=== PATIENT | female | born 1950 | race African-American/Black ===

== ENCOUNTER 2017-08-17 20:27 | Inpatient (IN) ==
--- NOTE | 2017-08-17 21:02 | Emergency Department Note ---
Disposition Clinical Impression: Small bowel obstruction Disposition: Admitted As Inpatient Condition: Good Referrals: Alfredo Santiago MD [Primary Care Provider] - Forms: ED Satisfaction Letter, Work/School Release Time of Disposition: 23:00 General Adult HPI - General Chief complaint: ED Abdominal Pain Stated complaint: abdominal pain Time Seen by Provider: 08/17/17 20:41 Source: patient Limitations: no limitations Nursing Notes Reviewed: Yes Vital Signs Reviewed: Yes - History of Present Illness HPI Narrative: Mrs. Castanon is a very pleasant 67-year-old female who presents to the [facility] emergency department with a chief complaint of abdominal pain. She reports this abdominal pain started at approximately 5 PM today after eating soup. Patient had this abdominal pain previously but not to this extent. Patient reports his pain is sharp and localized to the epigastric region. She has a history of colon cancer back in 2006 that was treated with partial resection and chemotherapy. She follows the cancer center here [place] annually and is in remission. Subsequently, she experienced 2 small bowel obstructions of which the latter required surgical intervention at [facility] that was roughly 2 years ago after she had her colon resection. She has had no abdominal complaints since then. Her last bowel movement was this morning and was unremarkable. Patient has associated nausea without any emesis. She denies any dysuria, hematuria, hematochezia, melena, chest pain, shortness breath, palpitations or fever. No other complaints at this time. Pain Scale: 7 - Related Data Home Medications Medication Instructions Recorded Confirmed Calcium Carbonate/Vitamin D3 1 each PO BID 01/04/15 12/30/16 [Calcium 500 + D Tablet] Cyanocobalamin (Vitamin B-12) 1,000 mcg PO DAILY 01/04/15 12/30/16 [Vitamin B-12] Multivitamin [Multi-Day Vitamins] 1 each PO DAILY 01/04/15 12/30/16 Raloxifene [Evista] 60 mg PO DAILY 01/04/15 12/30/16 Zinc Gluconate [Zinc] 10 mg PO DAILY 01/04/15 12/30/16 Folic Acid 1 mg PO DAILY 01/01/16 12/30/16 [place]-3/Dha/Epa/Fish Oil [Fish Oil 1 each PO DAILY 12/30/16 12/30/16 500 mg Softgel] Allergies Allergy/AdvReac Type Severity Reaction Status Date / Time No Known Allergies Allergy Verified 12/30/16 08:28 Review of Systems: As Per HPI Past Medical History - Past Medical History Medical history: Reports: cancer Surgical history: Reports: cancer surgery Psychiatric history: Reports: no psych history - Social History Smoking Status: Never smoker Alcohol use: Reports: none Drug use: Reports: none Physical Exam CONSTITUTIONAL: Alert and oriented X3 but appears uncomfortable and is grabbing her stomach HEAD: Normocephalic; atraumatic. Oropharynx: pink/moist RESP: NRD without use of accessory musculature, CTA b/l with no wheezes/rales/ rhonchi CARD: Regular rhythm, without murmurs, rubs, or gallop ABD: grossly normal, soft, profoundly tender to palpation to the epigastric region with guarding present, no rebound tenderness or distention SKIN: normal appearance, no pallor/diaphoresis,mottling,jaundice,cyanosis EXT: DP/Rad pulses 2+ and symmetrical; no lateralizing edema; no other lesions seen PSYCH: appropriate mood/affect - General Limitations: no limitations General appearance: alert, in no apparent distress Course Course Narrative: Patient was seen and examined at bedside with present. Vital signs reviewed and were unremarkable. Physical examination demonstrates a patient who is uncomfortable and grabbing her abdomen. Abdominal exam shows profound tenderness to palpation to her epigastric region with guarding present no rebound tenderness or distention. Examination otherwise was benign. We will begin workup with urinalysis, BMP, CBC, hepatic panel, lipase. IV access obtained. IV Zofran and morphine will be given. Given her history of colon cancer, partial colon resection and multiple SBO's along with her presentation will further evaluate with a CT of the abdomen and pelvis with IV contrast. This disposition was discussed with patient and and all her questions were addressed. Results pending. 2134: Patient is still uncomfortable and will add on 25 F[address]. Start[address] IV fluids. CT pending. 2258: CT of abdomen demonstrates a small bowel obstruction with a transition point in the mid abdomen. Patient is nothing by mouth. General surgery, Dr. Lee was called and the case was discussed with him. No further recommendations at this time. Surgery will be primary team to admit to 3A. Patient understands and agrees to plan. Vital Signs Temperature 98.3 F 08/17/17 20:28 Pulse Rate 81 08/17/17 20:28 Respiratory Rate 18 08/17/17 20:28 Blood Pressure 115/65 08/17/17 20:28 O2 Sat by Pulse Oximetry 99 08/17/17 20:28 Temperature 98.3 F 08/17/17 20:28 Pulse Rate 78 08/17/17 22:39 Respiratory Rate 20 08/17/17 22:39 Blood Pressure 125/68 08/17/17 22:39 O2 Sat by Pulse Oximetry 100 08/17/17 22:39 Oxygen Delivery Oxygen Delivery Room Air Medical Decision Making - Medical Records Medical records reviewed: Yes I reviewed the patient's medical records. - Lab Data Lab results reviewed: Yes I reviewed the patient's lab results. Result diagrams: 08/17/17 20:56 08/17/17 20:56 Lab Results 08/17/17 08/17/17 08/17/17 Range/Units 20:46 20:56 20:56 WBC 7.7 (4.3-11.1) K/mcL RBC 5.04 H (3.82-4.97) M/mcL Hgb 13.7 (11.5-15.4) g/dL Hct 42.0 (35.3-44.9) % MCV 83.3 (83.0-100.0) fL MCH 27.2 L (28.0-33.3) pg MCHC 32.6 (31.6-35.5) g/dL RDW 14.0 (11.5-14.5) % Plt Count 290 (140-400) K/mcL MPV 9.0 L (9.4-12.4) fL Immature Gran % 0.4 (0-4) % Seg Neutrophils % 84.1 % Lymphocytes % 10.0 % Monocytes % 4.9 % Eosinophils % 0.3 % Basophils % 0.3 % Neutrophils # 6.5 (1.6-8.9) K/mcL Lymphocytes # 0.8 (0.6-4.6) K/mcL Monocytes # 0.4 (0.0-1.3) K/mcL Eosinophils # 0.0 (0.0-0.6) K/mcL Basophils # 0.0 (0.0-0.2) K/mcL Platelet Estimate Normal (Normal) Sodium 139 (136-145) mEq/L Potassium 3.8 (3.5-5.1) mEq/L Chloride 104 (98-107) mEq/L Carbon Dioxide 25 (23-29) mEq/L BUN 15 (8-23) mg/dL Creatinine 0.88 (0.60-1.20) mg/dL Est GFR ( Amer) > 60 (> 60) Est GFR (Non-Af Amer) > 60 (> 60) BUN/Creatinine Ratio 17 (6-26) Glucose 130 H (70-105) mg/dL Calculated Osmolality 291 (280-300) Lactic Acid (0.5-2.2) mmol/L Calcium 10.1 (8.6-10.3) mg/dL Total Bilirubin 0.8 (0.3-1.0) mg/dL Direct Bilirubin 0.1 (0.0-0.2) mg/dL Indirect Bilirubin 0.7 (0.0-1.2) mg/dL AST 16 (13-39) Units/L ALT 14 (7-52) Units/L Alkaline Phosphatase 66 (34-104) Units/L Serum Total Protein 8.0 (6.4-8.9) g/dL Albumin 4.9 (3.5-5.7) g/dL Globulin 3.1 (2.4-3.5) g/dL Albumin/Globulin Ratio 1.6 (1.1-2.2) Lipase 26 (11-82) Units/L Urine Color Yellow (Yellow) Urine Clarity Clear (Clear) Urine pH 8.5 H (5.0-8.0) pH Units Ur Specific [place] 1.022 (1.010-1.025) Urine Protein 30 H (Neg-Trace) mg/dL Urine Glucose (UA) Normal (Normal) mg/dL Urine Ketones 15 H (Negative) mg/dL Urine Blood Negative (Negative) Urine Nitrite Negative (Negative) Urine Bilirubin Negative (Negative) Urine Urobilinogen Normal (Normal) mg/dL Ur Leukocyte Esterase Negative (Negative) Urine Microscopic RBC 3-5 H (0-3) per hpf Urine Microscopic WBC 0-3 (0-3) per hpf Ur Squamous Epith Cells Moderate H (None-Few) per lpf Urine Bacteria None Seen (None-Few) per hpf Hyaline Casts None Seen (None-Few) per lpf Ur Culture Indicated? NO (NO) 08/17/17 Range/Units 20:56 WBC (4.3-11.1) K/mcL RBC (3.82-4.97) M/mcL Hgb (11.5-15.4) g/dL Hct (35.3-44.9) % MCV (83.0-100.0) fL MCH (28.0-33.3) pg MCHC (31.6-35.5) g/dL RDW (11.5-14.5) % Plt Count (140-400) K/mcL MPV (9.4-12.4) fL Immature Gran % (0-4) % Seg Neutrophils % % Lymphocytes % % Monocytes % % Eosinophils % % Basophils % % Neutrophils # (1.6-8.9) K/mcL Lymphocytes # (0.6-4.6) K/mcL Monocytes # (0.0-1.3) K/mcL Eosinophils # (0.0-0.6) K/mcL Basophils # (0.0-0.2) K/mcL Platelet Estimate (Normal) Sodium (136-145) mEq/L Potassium (3.5-5.1) mEq/L Chloride (98-107) mEq/L Carbon Dioxide (23-29) mEq/L BUN (8-23) mg/dL Creatinine (0.60-1.20) mg/dL Est GFR ( Amer) (> 60) Est GFR (Non-Af Amer) (> 60) BUN/Creatinine Ratio (6-26) Glucose (70-105) mg/dL Calculated Osmolality (280-300) Lactic Acid 2.7 H (0.5-2.2) mmol/L Calcium (8.6-10.3) mg/dL Total Bilirubin (0.3-1.0) mg/dL Direct Bilirubin (0.0-0.2) mg/dL Indirect Bilirubin (0.0-1.2) mg/dL AST (13-39) Units/L ALT (7-52) Units/L Alkaline Phosphatase (34-104) Units/L Serum Total Protein (6.4-8.9) g/dL Albumin (3.5-5.7) g/dL Globulin (2.4-3.5) g/dL Albumin/Globulin Ratio (1.1-2.2) Lipase (11-82) Units/L Urine Color (Yellow) Urine Clarity (Clear) Urine pH (5.0-8.0) pH Units Ur Specific [place] (1.010-1.025) Urine Protein (Neg-Trace) mg/dL Urine Glucose (UA) (Normal) mg/dL Urine Ketones (Negative) mg/dL Urine Blood (Negative) Urine Nitrite (Negative) Urine Bilirubin (Negative) Urine Urobilinogen (Normal) mg/dL Ur Leukocyte Esterase (Negative) Urine Microscopic RBC (0-3) per hpf Urine Microscopic WBC (0-3) per hpf Ur Squamous Epith Cells (None-Few) per lpf Urine Bacteria (None-Few) per hpf Hyaline Casts (None-Few) per lpf Ur Culture Indicated? (NO) - Radiology Data Radiology results reviewed: Yes I reviewed the patient's radiology results. Abdomen/Pelvis CT 08/17/17 21:10 IMPRESSION: Findings compatible small bowel obstruction with a zone of transition in the mid abdomen. Consider small bowel follow-through for more dynamic evaluation. Re- demonstration of multiple hepatic hemangiomas which appeared decreased in size when compared to the previous exam. D/ / Jayro Gotti MD / Jayro Gotti MD Interpreting Provider: Jayro Gotti MD
[2017-08-17] MEDS ORDERED: *HR* Morphine 2 MG/ML SYRINGE IVP ONE (21:10)
[2017-08-17] MEDS ORDERED: Ondansetron 4 MG/2 ML VIAL IVP ONE (21:10)
[2017-08-17 21:13] LABS: Bilirubin,Urine Negative (Negative); Blood,Urine Negative (Negative); Clarity,Urine Clear (Clear); Color,Urine Yellow (Yellow); Glucose,Urine (UA) Normal (Normal); Ketones,Urine 15 mg/dL (Negative); Leukocyte Esterase,Urine Negative (Negative); Nitrite,Urine Negative (Negative); PH,Urine 8.5 pH Units (5.0-8.0); Protein,Urine 30 mg/dL (Neg-Trace); Specific Gravity,Urine 1.022 (1.010-1.025); Urobilinogen,Urine Normal (Normal)
[2017-08-17 21:15] LABS: Basophils % 0.3 %; Eosinophils % 0.3 %; Hemoglobin 13.7 g/dL (11.5-15.4); Immature Granulocytes % 0.4 % (0-4); Mean Corpuscular HGB Conc 32.6 g/dL (31.6-35.5); Mean Corpuscular Hemoglobin 27.2 pg (28.0-33.3); Mean Corpuscular Volume 83.3 fL (83.0-100.0); Monocytes % 4.9 %; Platelet Count 290 K/mcL (140-400); Red Blood Count 5.04 M/mcL (3.82-4.97); Segmented Neutrophils % 84.1 %
[2017-08-17 21:16] LABS: Bacteria,Urine None Seen per hpf (None-Few); Hyaline Casts,Urine None Seen per lpf (None-Few); Squamous Epithelial Cell,Urine Moderate per lpf (None-Few); WBC,Urine 0-3 per hpf (0-3)
[2017-08-17 21:16] LABS: Lymphocytes # 0.8 K/mcL (0.6-4.6); Monocytes # 0.4 K/mcL (0.0-1.3); Neutrophils # 6.5 K/mcL (1.6-8.9)
[2017-08-17 21:29] LABS: Alanine Aminotransferase 14 Units/L (7-52); Albumin 4.9 g/dL (3.5-5.7); Albumin/Globulin Ratio 1.6 (1.1-2.2); Alkaline Phosphatase 66 Units/L (34-104); Aspartate Amino Transferase 16 Units/L (13-39); BUN/Creatinine Ratio 17 (6-26); Bilirubin,Direct 0.1 mg/dL (0.0-0.2); Bilirubin,Indirect 0.7 mg/dL (0.0-1.2); Bilirubin,Total 0.8 mg/dL (0.3-1.0); Blood Urea Nitrogen 15 mg/dL (8-23); Calcium 10.1 mg/dL (8.6-10.3); Carbon Dioxide 25 mEq/L (23-29); Chloride 104 mEq/L (98-107); Globulin 3.1 g/dL (2.4-3.5); Glucose 130 mg/dL (70-105); Lipase 26 Units/L (11-82); Osmolality,Calculated 291 (280-300); Potassium 3.8 mEq/L (3.5-5.1); Sodium 139 mEq/L (136-145); eGFR For African Americans > 60 (> 60); eGFR For Non-African Americans > 60 (> 60)
[2017-08-17] MEDS ORDERED: 0.9 % Sodium Chloride 1,000 ML IVC ONE (21:31)
[2017-08-17] MEDS ORDERED: *HR* FentaNYL (PF) 100 MCG/2 ML VIAL IVP ONE ×2 (21:33→21:58)
[2017-08-17 21:36] LABS: Platelet Estimate Normal (Normal)
--- NOTE | 2017-08-17 23:07 | Emergency Department Note ---
Disposition Clinical Impression: Small bowel obstruction Disposition: Admitted As Inpatient Condition: Good General Adult HPI - General Chief complaint: ED Abdominal Pain Stated complaint: abdominal pain Time Seen by Provider: 08/17/17 20:41 Source: patient Limitations: no limitations - History of Present Illness Pain Scale: 7 - Related Data Home Medications Medication Instructions Recorded Confirmed Calcium Carbonate/Vitamin D3 1 each PO DAILY 01/04/15 08/18/17 [Calcium 500 + D Tablet] Cyanocobalamin (Vitamin B-12) 1,000 mcg PO DAILY 01/04/15 08/18/17 [Vitamin B-12] Multivitamin [Multi-Day Vitamins] 1 each PO DAILY 01/04/15 08/18/17 Zinc Gluconate [Zinc] 10 mg PO DAILY 01/04/15 08/18/17 Folic Acid 1 mg PO DAILY 01/01/16 08/18/17 [place]-3/Dha/Epa/Fish Oil [Fish Oil 1 each PO DAILY 12/30/16 08/18/17 500 mg Softgel] Alendronate Sodium [Alendronate 70 mg PO QWEEK 08/18/17 08/18/17 Sodium] Magnesium Oxide [Magnesium] 400 mg PO DAILY 08/18/17 08/18/17 Allergies Allergy/AdvReac Type Severity Reaction Status Date / Time No Known Allergies Allergy Verified 12/30/16 08:28 Past Medical History - Past Medical History Medical history: Reports: cancer Surgical history: Reports: cancer surgery Psychiatric history: Reports: no psych history - Social History Smoking Status: Never smoker Alcohol use: Reports: none Drug use: Reports: none Physical Exam - General Limitations: no limitations General appearance: alert, in no apparent distress Course Vital Signs Temperature 98.3 F 08/17/17 20:28 Pulse Rate 81 08/17/17 20:28 Respiratory Rate 18 08/17/17 20:28 Blood Pressure 115/65 08/17/17 20:28 O2 Sat by Pulse Oximetry 99 08/17/17 20:28 Temperature 98.7 F 08/19/17 11:01 Pulse Rate 66 08/19/17 11:01 Respiratory Rate 14 08/19/17 11:01 Blood Pressure 101/62 08/19/17 11:01 O2 Sat by Pulse Oximetry 99 08/19/17 11:01 Oxygen Delivery Oxygen Delivery Room Air Medical Decision Making - Lab Data Result diagrams: 08/19/17 05:40 08/19/17 05:40 Lab Results 08/17/17 08/17/17 08/17/17 Range/Units 20:46 20:56 20:56 WBC 7.7 (4.3-11.1) K/mcL RBC 5.04 H (3.82-4.97) M/mcL Hgb 13.7 (11.5-15.4) g/dL Hct 42.0 (35.3-44.9) % MCV 83.3 (83.0-100.0) fL MCH 27.2 L (28.0-33.3) pg MCHC 32.6 (31.6-35.5) g/dL RDW 14.0 (11.5-14.5) % Plt Count 290 (140-400) K/mcL MPV 9.0 L (9.4-12.4) fL Immature Gran % 0.4 (0-4) % Seg Neutrophils % 84.1 % Lymphocytes % 10.0 % Monocytes % 4.9 % Eosinophils % 0.3 % Basophils % 0.3 % Neutrophils # 6.5 (1.6-8.9) K/mcL Lymphocytes # 0.8 (0.6-4.6) K/mcL Monocytes # 0.4 (0.0-1.3) K/mcL Eosinophils # 0.0 (0.0-0.6) K/mcL Basophils # 0.0 (0.0-0.2) K/mcL Platelet Estimate Normal (Normal) Sodium 139 (136-145) mEq/L Potassium 3.8 (3.5-5.1) mEq/L Chloride 104 (98-107) mEq/L Carbon Dioxide 25 (23-29) mEq/L BUN 15 (8-23) mg/dL Creatinine 0.88 (0.60-1.20) mg/dL Est GFR ( Amer) > 60 (> 60) Est GFR (Non-Af Amer) > 60 (> 60) BUN/Creatinine Ratio 17 (6-26) Glucose 130 H (70-105) mg/dL Calculated Osmolality 291 (280-300) Lactic Acid (0.5-2.2) mmol/L Calcium 10.1 (8.6-10.3) mg/dL Total Bilirubin 0.8 (0.3-1.0) mg/dL Direct Bilirubin 0.1 (0.0-0.2) mg/dL Indirect Bilirubin 0.7 (0.0-1.2) mg/dL AST 16 (13-39) Units/L ALT 14 (7-52) Units/L Alkaline Phosphatase 66 (34-104) Units/L Serum Total Protein 8.0 (6.4-8.9) g/dL Albumin 4.9 (3.5-5.7) g/dL Globulin 3.1 (2.4-3.5) g/dL Albumin/Globulin Ratio 1.6 (1.1-2.2) Lipase 26 (11-82) Units/L Urine Color Yellow (Yellow) Urine Clarity Clear (Clear) Urine pH 8.5 H (5.0-8.0) pH Units Ur Specific [place] 1.022 (1.010-1.025) Urine Protein 30 H (Neg-Trace) mg/dL Urine Glucose (UA) Normal (Normal) mg/dL Urine Ketones 15 H (Negative) mg/dL Urine Blood Negative (Negative) Urine Nitrite Negative (Negative) Urine Bilirubin Negative (Negative) Urine Urobilinogen Normal (Normal) mg/dL Ur Leukocyte Esterase Negative (Negative) Urine Microscopic RBC 3-5 H (0-3) per hpf Urine Microscopic WBC 0-3 (0-3) per hpf Ur Squamous Epith Cells Moderate H (None-Few) per lpf Urine Bacteria None Seen (None-Few) per hpf Hyaline Casts None Seen (None-Few) per lpf Ur Culture Indicated? NO (NO) 08/17/17 Range/Units 20:56 WBC (4.3-11.1) K/mcL RBC (3.82-4.97) M/mcL Hgb (11.5-15.4) g/dL Hct (35.3-44.9) % MCV (83.0-100.0) fL MCH (28.0-33.3) pg MCHC (31.6-35.5) g/dL RDW (11.5-14.5) % Plt Count (140-400) K/mcL MPV (9.4-12.4) fL Immature Gran % (0-4) % Seg Neutrophils % % Lymphocytes % % Monocytes % % Eosinophils % % Basophils % % Neutrophils # (1.6-8.9) K/mcL Lymphocytes # (0.6-4.6) K/mcL Monocytes # (0.0-1.3) K/mcL Eosinophils # (0.0-0.6) K/mcL Basophils # (0.0-0.2) K/mcL Platelet Estimate (Normal) Sodium (136-145) mEq/L Potassium (3.5-5.1) mEq/L Chloride (98-107) mEq/L Carbon Dioxide (23-29) mEq/L BUN (8-23) mg/dL Creatinine (0.60-1.20) mg/dL Est GFR ( Amer) (> 60) Est GFR (Non-Af Amer) (> 60) BUN/Creatinine Ratio (6-26) Glucose (70-105) mg/dL Calculated Osmolality (280-300) Lactic Acid 2.7 H (0.5-2.2) mmol/L Calcium (8.6-10.3) mg/dL Total Bilirubin (0.3-1.0) mg/dL Direct Bilirubin (0.0-0.2) mg/dL Indirect Bilirubin (0.0-1.2) mg/dL AST (13-39) Units/L ALT (7-52) Units/L Alkaline Phosphatase (34-104) Units/L Serum Total Protein (6.4-8.9) g/dL Albumin (3.5-5.7) g/dL Globulin (2.4-3.5) g/dL Albumin/Globulin Ratio (1.1-2.2) Lipase (11-82) Units/L Urine Color (Yellow) Urine Clarity (Clear) Urine pH (5.0-8.0) pH Units Ur Specific [place] (1.010-1.025) Urine Protein (Neg-Trace) mg/dL Urine Glucose (UA) (Normal) mg/dL Urine Ketones (Negative) mg/dL Urine Blood (Negative) Urine Nitrite (Negative) Urine Bilirubin (Negative) Urine Urobilinogen (Normal) mg/dL Ur Leukocyte Esterase (Negative) Urine Microscopic RBC (0-3) per hpf Urine Microscopic WBC (0-3) per hpf Ur Squamous Epith Cells (None-Few) per lpf Urine Bacteria (None-Few) per hpf Hyaline Casts (None-Few) per lpf Ur Culture Indicated? (NO) Attestation Statement - Attestation Attestation: I examined this patient and my medical decision-making was reviewed with the Resident Physician, Dr. Pool. I agree with the documented findings, disposition and treatment plan as described except to the extent set forth below. Patient is a 67-year-old black female who presents to the emergency department with a history of severe epigastric pain that "feels similar to my prior small bowel obstructions" associated with nausea since 5 PM this evening. Patient had prior small bowel obstructions with subsequent bowel resection at [facility] approximately 2 years ago. Patient denies any fevers or chills, no vomiting, no bowel changes, no urinary symptoms or flank pain. I agree with patient's physical exam findings as documented. For me patient had exquisite tenderness to palpation in the epigastric area with mild guarding. Patient had IV fluids initiated labs were drawn and sent and patient was sent for CT abdomen and pelvis with IV contrast for further evaluation. Patient did get some moderately following IV pain medicine administration. She has not vomited while in the ED. Labs show elevated lactate, IV fluids were continued. Patient's CT scan shows small bowel obstruction. Patient has not vomited, we will hold off on NG tube this time. Case was discussed with Dr. merino who accepted the patient for admission.
[2017-08-18] MEDS ORDERED: *HR* OxyCODONE Immed Rel 5 MG TABLET PO PRN (00:47)
[2017-08-18] MEDS ORDERED: Ondansetron 4 MG/2 ML VIAL IVP PRN (01:10)
[2017-08-18] MEDS ORDERED: *HR* Promethazine 25 MG/ML VIAL IVP PRN (01:13)
[2017-08-18] MEDS: Ringers Solution, Lactated 1,000 ML IVC SCH ×2 (01:46→11:46)
--- NOTE | 2017-08-18 15:38 | General Surg History&Physical ---
Date of Encounter: 08/18/17 Time of Encounter: 12:15 History of Present Illness Chief complaint: abdominal pain, possible SBO HPI: Ms. Castanon is a 67 year old female admitted after presenting to [facility] ED with epigastric abdominal pain. The pain began abruptly approximate 1700 hrs. following an evening meal consisting of soup. Patient presented to the emergency department with complaints of epigastric, cramping abdominal pain and nausea but no emesis. She has not been febrile, or noted any change in bowel habits. No detected blood per rectum. Evaluation in the emergency department included lab work and CT abdomen/pelvis. Labs were unremarkable, white count 7.7, hemoglobin 13.7, hematocrit 42.0. Differential was unremarkable. Electrolytes, BUN and creatinine were within normal limits. Lactic acid was elevated at 2.7; LFTs were normal. Urinalysis was notable for specific gravity 1.022, pH 8.5 with 15 ketones. Microscopic showed 3-5 RBC/hpf and 0-3 WBC/hpf. CT abdomen/pelvis was reviewed with [facility] - findings included hypodense lesions within both right and left hepatic lobes which had been demonstrated on previous CTs and are most compatible with hemangiomas. No new hepatic abnormalities suggestive of metastases were identified. Dilatation of the small bowel within the mid upper abdomen is described with a zone of transition in the mid abdomen. Despite this transition zone, fluid is demonstrated in the small bowel extending to the ileocecal valve. Multiple calcified uterine fibroids are also demonstrated and appear stable. Since admission, the patient is feeling better, describing diminished abdominal pain. There is been no nausea or vomiting. Past medical history is notable for colon cancer in 2006 for which a left colectomy with incidental appendectomy was completed. No significant medical history of hypertension, diabetes, cardiac or pulmonary disease. Past surgical history includes A port placed to facilitate administration of chemotherapy, this IV access was removed and chemotherapy was completed. H/o prior exploratory celiotomy with release of small bowel obstruction 2 since 2006; colonoscopy last completed, 02/26/17. Remote history of ; endometrial ablation in 2003. Allergies: No known drug allergies Medications: Evista 60 mg by mouth daily Multivitamin 1 by mouth daily Calcium with vitamin D3 600 mg by mouth twice a day Vitamin B12 1000 g by mouth daily Folic acid 400 g by mouth daily [place]-3 fish oil 1 by mouth daily Social history: Patient is , lives with spouse; she has never smoked; she admits to an occasional intake of wine; she denies any illicit drug use On physical examination: Age-appropriate woman resting comfortably in her hospital bed. She appears to be in no acute distress She is 1.73 m tall, 66.28 kg, BMI 22.2. She has been afebrile, 98.0; pulse 68, respiratory rate 12, BP 102/67 Skin: Warm, no obvious jaundice Lungs: Clear bilaterally, no obvious abdomen pain on deep inspiration Cardiac: Regular rate, no appreciable murmur Abdomen: Slightly distended but soft, nontender. No obvious intra-abdominal masses. No rebound. Prominent midline scarring consistent with previous left colectomy and 2 subsequent exploratory celiotomies - well healed without detected fascial defects. Active bowel sounds. Extremities: Without obvious clubbing, cyanosis or edema. Impression: 67-year-old female admitted after presenting to [facility] ED with epigastric abdominal pain, nausea, and radiologic findings suggestive of small bowel obstruction. The patient has received pain control, antiemetics, and IV fluid. She is feeling better with diminished abdominal pain. Nausea is described as resolved. The CT abdomen/pelvis was reviewed with [facility] demonstrated small bowel obstruction versus a nonspecific enteritis. Discussed with patient - will initiate a SBFT with gastrografin for further evaluation. Continue IV fluids and symptom control as needed. Past Med Surg Social Fam HX - Past Medical History Medical history: cancer Psychiatric history: no psych history - Past Surgical History Surgical History: cancer surgery - Social History Smoking Status: Never smoker Alcohol use: none Drug use: none - Family History Mother Living Status: Hx Family Endocrine Disorder: Yes (DM) Father Living Status: Hx Family Cancer: Yes (pancreatic cancer) Medications and Allergies Calcium Carbonate/Vitamin D3 [Calcium 500 + D Tablet] 1 each PO DAILY 01/04/15 [ History] Cyanocobalamin (Vitamin B-12) [Vitamin B-12] 1,000 mcg PO DAILY 01/04/15 [ History] Multivitamin [Multi-Day Vitamins] 1 each PO DAILY 01/04/15 [History] Zinc Gluconate [Zinc] 10 mg PO DAILY 01/04/15 [History] Folic Acid 1 mg PO DAILY 01/01/16 [History] [place]-3/Dha/Epa/Fish Oil [Fish Oil 500 mg Softgel] 1 each PO DAILY 12/30/16 [ History] Alendronate Sodium [Alendronate Sodium] 70 mg PO QWEEK 08/18/17 [History] Magnesium Oxide [Magnesium] 400 mg PO DAILY 08/18/17 [History] 3 Allergy/AdvReac Type Severity Reaction Status Date / Time No Known Allergies Allergy Verified 12/30/16 08:28 Review of Systems All systems PM: The remainder of the systems were reviewed and are negative General Surgery Exam Initial Vital Signs Temp Pulse Resp BP Pulse Ox 98.3 F 81 18 115/65 99 08/17/17 20:28 08/17/17 20:28 08/17/17 20:28 08/17/17 20:28 08/17/17 20:28 Results - Labs 08/17/17 20:56 08/17/17 20:56 Abnormal lab results RBC 5.04 M/mcL (3.82-4.97) H 08/17/17 20:56 MCH 27.2 pg (28.0-33.3) L 08/17/17 20:56 MPV 9.0 fL (9.4-12.4) L 08/17/17 20:56 Glucose 130 mg/dL (70-105) H 08/17/17 20:56 Urine pH 8.5 pH Units (5.0-8.0) H 08/17/17 20:46 Urine Protein 30 mg/dL (Neg-Trace) H 08/17/17 20:46 Urine Ketones 15 mg/dL (Negative) H 08/17/17 20:46 Urine Microscopic RBC 3-5 per hpf (0-3) H 08/17/17 20:46 Ur Squamous Epith Cells Moderate per lpf (None-Few) H 08/17/17 20:46 All other labs normal.
[2017-08-18] MEDS ORDERED: Ringers Solution, Lactated 1,000 ML IVC SCH (16:15)
[2017-08-19 06:53] LABS: BUN/Creatinine Ratio 16 (6-26); Blood Urea Nitrogen 13 mg/dL (8-23); Calcium 8.5 mg/dL (8.6-10.3); Carbon Dioxide 23 mEq/L (23-29); Chloride 114 mEq/L (98-107); Glucose 86 mg/dL (70-105); Osmolality,Calculated 293 (280-300); Potassium 3.7 mEq/L (3.5-5.1); Sodium 142 mEq/L (136-145); eGFR For African Americans > 60 (> 60); eGFR For Non-African Americans > 60 (> 60)
[2017-08-19 07:08] LABS: Eosinophils # 0.1 K/mcL (0.0-0.6); Hematocrit 35.6 % (35.3-44.9); Lymphocytes # 1.4 K/mcL (0.6-4.6); Mean Corpuscular HGB Conc 31.5 g/dL (31.6-35.5); Mean Corpuscular Hemoglobin 26.6 pg (28.0-33.3); Mean Corpuscular Volume 84.6 fL (83.0-100.0); Neutrophils # 1.4 K/mcL (1.6-8.9); Platelet Count 157 K/mcL (140-400); Red Blood Count 4.21 M/mcL (3.82-4.97); Red Cell Distribution Width 14.3 % (11.5-14.5)
[2017-08-19 07:27] LABS: Hemoglobin 11.2 g/dL (11.5-15.4)
[2017-08-19 08:17] LABS: Monocytes # 0.2 K/mcL (0.0-1.3)
[2017-08-19 08:18] LABS: Platelet Estimate Normal (Normal)
[2017-08-19 11:02] VITALS: BP 101/62
--- NOTE | 2017-08-19 12:12 | General Surgery Progress Note ---
Date of Encounter: 08/19/17 Time of Encounter: 12:05 Subjective Patient reports: no new complaints, feels better, tolerating liquids well, flatus, bowel movement Narrative: General Surgery - Hospital Day #1 Discharge Summary Patient feeling much better. Abd pain resolved. No nausea or vomiting. Tolerating full liquids. The patient reports flatus and bowel movement. Small bowel follow-through completed last evening showed contrast reaching the colon within 1-1/2 hours. No obvious delays in small bowel transit. The patient remains afebrile, hemodynamically stable Lungs: Clear bilaterally; no abdominal pain with deep inspiration Cardiac: Regular rate Abdomen: Soft, nontender. Bowel sounds active. Labs: White count is fallen to 3.1, neutrophils also diminished at 1.4%. Hemoglobin 11.2 with hematocrit 35.6- likely IV fluids administered in the ER and during her hospital stay. Electrolytes, BUN, creatinine within normal limits except chloride of 114. Impression: Abdominal pain, nausea - resolved; suspect viral etiology causing the mild leukopenia. Patient now passing flatus and moving her bowels. Small bowel follow- through was unremarkable with no evidence of bowel obstruction History of colon cancer, no evidence of recurrent cancer to date. Colonoscopy last completed 02/2017 Plan: Discharge home outpatient follow-up in the office. Objective Vital Signs - Last 8 Hours Temp Pulse Resp BP Pulse Ox 08/19/17 11:01 98.7 F 66 14 101/62 99 08/19/17 06:00 99.0 F 61 15 113/70 99 Intake and Output 08/18/17 08/19/17 08/19/17 23:59 07:59 15:59 Intake Total 652 / 652 717 / 717 322 / 322 Output Total 100 / 100 Balance 652 / 652 617 / 617 322 / 322 Intake: IV Fluids 412 / 412 572 / 572 322 / 322 Lactated Ringers 1,000 ML @ 50 412 / 412 572 / 572 322 / 322 mls/hr IVC .Q20H LILI Rx#: [id number] Oral 240 / 240 145 / 145 Output: Urine 100 / 100 Other: Meal Dinner Percent of Meal Consumed 100% Stool Size Moderate Small Stool Consistency loose Stool Color Brown # Voids 1 1 # Bowel Movements 1 1 Weight 66.179 kg Blood Glucose* 88 92 Patient Weight 08/19/17 23:59 Weight 66.179 kg - Labs 04/26/18 05:40 08/19/17 05:40 Diabetes panel 08/19/17 Range/Units 05:40 Sodium 142 (136-145) mEq/L Potassium 3.7 (3.5-5.1) mEq/L Chloride 114 H (98-107) mEq/L Carbon Dioxide 23 (23-29) mEq/L BUN 13 (8-23) mg/dL Creatinine 0.82 (0.60-1.20) mg/dL Glucose 86 (70-105) mg/dL Calcium 8.5 L (8.6-10.3) mg/dL Calcium panel 08/19/17 Range/Units 05:40 Calcium 8.5 L (8.6-10.3) mg/dL Pituitary panel 08/19/17 Range/Units 05:40 Sodium 142 (136-145) mEq/L Potassium 3.7 (3.5-5.1) mEq/L Chloride 114 H (98-107) mEq/L Carbon Dioxide 23 (23-29) mEq/L BUN 13 (8-23) mg/dL Creatinine 0.82 (0.60-1.20) mg/dL Glucose 86 (70-105) mg/dL Calcium 8.5 L (8.6-10.3) mg/dL Adrenal panel 08/19/17 Range/Units 05:40 Sodium 142 (136-145) mEq/L Potassium 3.7 (3.5-5.1) mEq/L Chloride 114 H (98-107) mEq/L Carbon Dioxide 23 (23-29) mEq/L BUN 13 (8-23) mg/dL Creatinine 0.82 (0.60-1.20) mg/dL Glucose 86 (70-105) mg/dL Calcium 8.5 L (8.6-10.3) mg/dL Consult Discharge Plan - Plan Referrals: Alfredo Santiago MD [Primary Care Provider] -
--- NOTE | 2017-08-19 12:14 | Discharge Summary ---
Outpatient Proc Discharge Plan - Plan Additional Instructions: Regular diet Activity as tolerated; no limitations or restrictions Resume home meds Outpatient follow-up in 1 week Home Medications: Calcium Carbonate/Vitamin D3 [Calcium 500-Vit D3 400 Tablet] 1 each PO DAILY 03/10 [History] Cyanocobalamin (Vitamin B-12) [Vitamin B12] 1,000 mcg PO DAILY 01/04/15 [History ] Multivitamin [Multi-Day Vitamins] 1 each PO DAILY 01/04/15 [History] Zinc Gluconate [Zinc] 10 mg PO DAILY 01/04/15 [History] Folic Acid 1 mg PO DAILY 01/01/16 [History] [place]-3/Dha/Epa/Fish Oil [Fish Oil Dr 500 mg Softgel] 1 each PO DAILY 12/30/16 [ History] Alendronate Sodium 70 mg PO QWEEK 08/18/17 [History] Magnesium Oxide [Magnesium] 400 mg PO DAILY 08/18/17 [History]
== END 2017-08-19 13:12 | disposition home or self-care (01) | DRG 392 ==
LOC: EMEROO 20:27 → 3ANU 23:16
PROVIDERS: ADMIT Surgery; ATTEND Surgery